=== PATIENT | male | born 1965 | race Caucasian/White ===

== ENCOUNTER 2017-08-18 11:01 | Emergency (ER) | payer OTHER ==
[~2017-08-18] VITALS: Ht 172.7 cm; Wt 72.1 kg
[~2017-08-18 11:01] MED LIST: AUGM875T PO; CENTTAB9 PO; CYMB30CA PO; CYMB60CA PO; DILA2TAB2 PO; EZET10 PO; FENO160T2 PO; FLAX100013 PO; METH750T2 PO; NEUR800T PO; OMEP20TA39 PO; PROT40TA PO; SYMB160A INH; TAMS0.4C67 PO; ULTR50TA PO
[2017-08-18 11:04] VITALS: BP 132/82; PULSE 80; RESP 18; TEMP 98.4; O2SAT 97
[2017-08-18] MEDS ORDERED: PROMETHAZINE INJ 25 MG/ML VIAL IM ONE (11:30)
[2017-08-18] MEDS ORDERED: DEXAMETHASONE SOD PHOS 4 MG/ML VIAL IM ONE (11:30)
[2017-08-18] MEDS ORDERED: MORPHINE SULFATE 8 MG/ML INJ IM ONE (11:30)
[2017-08-18] MEDS ORDERED: NORC5TAB PO (11:36)
[2017-08-18] MEDS ORDERED: MEDR4PAK PO (11:36)
[2017-08-18] MEDS ORDERED: CYCL10TA PO (11:36)
--- NOTE | 2017-08-18 11:37 | PD ---
HPI Chief Complaint: Pain: Acute or Chronic Time Seen by Provider: 11:17 Travel History International Travel<30 days: No Contact w/Intl Traveler<30days: No Traveled to known affect area: No History of Present Illness HPI The patient is a 52-year-old male who presents to the emergency department for low back pain. The patient states he was using a shovel in the yard 3 days ago, when he got the shovel stuck under some roots, when he pulled back he heard a "pop "in the lower back. The patient has a history of chronic herniated disc in the past and has undergone physical therapy for the herniated disc in the back. The pain was located in the mid lower back, radiates to the right luteal area and down the lateral aspect the right leg to the mid right thigh. Pain is worse with certain types of movement and weightbearing, slightly alleviated and certain positions such as hips and knees flexed. He denies any weakness or numbness of the lower legs, but does note pain and difficulty walking secondary to the pain. He denies any urinary or fecal incontinence. The patient has been taking ibuprofen with minimal relief of his symptoms. He did take a friend's hydrocodone and Flexeril earlier today with moderate relief of his symptoms. PFSH Past Medical History Anxiety: Yes Cancer: No Cardiovascular Problems: No High Cholesterol: Yes Diabetes: No Endocrine: No Genitourinary: No (ENLARGED PROSTATE) Hepatitis: No Hiatal Hernia: Yes Immune Disorder: Yes (? MS) Musculoskeletal: Yes (L HAND FUSION, BILAT FOOT FX) Neurologic: Yes (NEUROPATHY IN BOTH FEET; HEAD TRAUMA 2011; NEUROPATHY LEFT HAND) Psychiatric: Yes (BIPOLAR ) Reproductive: Yes (RIGHT TESTICLE ) Respiratory: Yes (COPD) Thyroid Disease: No Past Surgical History Abdominal Surgery: No (INGUINAL HERNIA REPAIR RIGHT; NETO COLECTOMY; INGUINAL HERNIA LEFT REPAIR ) AICD: No Body Medical Devices: ABDOMINAL MESH, MULTIPLE Cardiac Surgery: No Cholecystectomy: Yes Ear Surgery: No Endocrine Surgery: No Eye Surgery: No Genitourinary Surgery: No Joint Replacement: No Oral Surgery: Yes (TEETH EXTRACTIONS ) Pacemaker: No Thoracic Surgery: Yes (2004 CHEST TUBE) Social History Alcohol Use: No Tobacco Use: Yes Substance Use: Yes (MARIJUANA) Allergies-Medications (Allergen,Severity, Reaction): Coded Allergies: diatrizoate meglumine (Unverified Allergy, Severe, Wheezing, 08/18/17) gadobenic acid (Unverified Allergy, Severe, Wheezing, 08/18/17) gadodiamide (Unverified Allergy, Severe, Wheezing, 08/18/17) gadoteridol (Unverified Allergy, Severe, Wheezing, 08/18/17) iodixanol (Unverified Allergy, Severe, Wheezing, 08/18/17) iohexol (Unverified Allergy, Severe, Wheezing, 08/18/17) codeine (Unverified Allergy, Intermediate, Rash, 08/18/17) aspirin (Unverified Adverse Reaction, Mild, BRUISING, 08/18/17) Uncoded Allergies: STATIN DRUGS (Adverse Reaction, Intermediate, BRUISING, 10/21/14) Reported Meds & Prescriptions Reported Meds & Active Scripts Active Augmentin 875 mg Tab (Amoxicillin & Pot Clavulanate 875 mg Tab) 875 Mg Tab 875 Mg PO BID Dilaudid 2 Mg Tab (Hydromorphone Hcl) 2 Mg Tab 2 Mg PO Q4H PRN Robaxin (Methocarbamol) 750 Mg Tab 750 Mg PO TID PRN Ultram (Tramadol HCl) 50 Mg Tab 50 Mg PO TID PRN Reported Symbicort (Budesonide/Formoterol Fumarate) 160 Mcg/4.5 Mcg Aer 2 Puff INH ONCE * SHAKE WELL BEFORE USE * Hm Omeprazole (Omeprazole) 20 Mg Tab 20 Mg PO DAILY Flax Seed Oil (Flaxseed (Linseed)) 1,000 Mg Cap 1 Cap PO BID Centrum (Multivitamins) Tab 1 Tab PO DAILY Zetia (Ezetimibe) 10 Mg Tab 10 Mg PO HS Fenofibrate 160 Mg Tab 160 Mg PO HS Protonix (Pantoprazole Sodium) 40 Mg Tab 40 Mg PO DAILY Flomax (Tamsulosin HCl) 0.4 Mg Cap 0.4 Mg PO DAILY Cymbalta (Duloxetine HCl) 30 Mg Cap 30 Mg PO HS Cymbalta (Duloxetine Hcl) 60 Mg Cap 60 Mg PO Q AM Neurontin (Gabapentin) 800 Mg Tab 800 Mg PO TID Review of Systems Except as stated in HPI: all other systems reviewed are Neg General / Constitutional: No: Fever Cardiovascular: No: Chest Pain or Discomfort Respiratory: No: Shortness of Breath Gastrointestinal: No: Nausea, Vomiting, Abdominal Pain Genitourinary: No: Incontinence Musculoskeletal: Positive: Pain, No: Weakness Neurologic: No: Focal Abnormalities, Paresthesia, Incontinence, Sensory Disturbance Physical Exam Narrative GENERAL: Awake, alert, pleasant 52-year-old male who appears his stated age and is in no acute respiratory distress. SKIN: Focused skin assessment warm/dry. HEAD: Atraumatic. Normocephalic. EYES: No scleral icterus noted. ENT: No nasal bleeding or discharge. Breath smells of tobacco. NECK: Trachea midline. No JVD. MUSCULOSKELETAL: No obvious deformities. No clubbing. No cyanosis. No edema. Plantar flexion dorsiflexion are 5 out of 5. Flexion of the great toes bilateral 5 out of 5. Extension left knee is 4+5. Flexion extension of the right knee is 5/5 on the right. Flexion the hips bilateral, right is 5/5, left is 4+/5. Positive dorsalis pedal pulses. Back: Mild tenderness in mid lower lumbar region as well as over the right sacroiliac and right paravertebral muscle. NEUROLOGICAL: Awake and alert. No obvious cranial nerve deficits. Motor grossly within normal limits. Normal speech. Sensation is intact to soft touch lower extremity is bilaterally. PSYCHIATRIC: Appropriate mood and affect; insight and judgment normal. Data Data Last Documented VS Vital Signs Date Time Temp Pulse Resp B/P (MAP) Pulse Ox O2 Delivery O2 Flow Rate FiO2 08/18/17 11:04 98.4 80 18 132/82 (99) 97 Orders Orders Dexamethasone Inj (Decadron Inj) (08/18/17 11:30) Morphine Inj (Morphine Inj) (08/18/17 11:30) Promethazine Inj (Phenergan Inj) (08/18/17 11:30) [facility] Medical Decision Making Medical Screen Exam Complete: Yes Emergency Medical Condition: Yes Medical Record Reviewed: Yes Differential Diagnosis differential diagnosis includes back pain, herniated disc, spinal stenosis, lumbar spondylosis, sciatica, cauda equina. Narrative Course The patient's history and physical are consistent with back pain and radiculopathy, possibly herniated disc versus spinal stenosis. The patient was administered Decadron 8 mg IM and morphine 6 g IM with Phenergan 25 mg IM. The patient be discharged home on Medrol Dosepak, Flexeril, and hydrocodone. He is advised to follow-up with his primary physician for outpatient referral to physical therapy. If symptoms persist he may benefit from neurosurgical evaluation and outpatient MRI. Diagnosis Primary Impression: Back pain with right-sided radiculopathy Patient Instructions: General Instructions Additional Instructions: Medications as directed. Follow-up with your primary physician for outpatient physical therapy evaluation. His symptoms persist he may benefit from outpatient neurosurgical evaluation and/or MRI. Med/Other Pt SpecificInfo: Prescription(s) given Scripts Cyclobenzaprine (Flexeril) 10 Mg Tab 10 MG PO TID for Muscle Spasm for 10 Days, #30 TAB 0 Refills Prov: Kamran Mancini MD 08/18/17 Hydrocodone-Acetaminophen (Crozier) 5-325 mg Tab 1 TAB PO Q6H Y for PAIN, #12 TAB 0 Refills Prov: Kamran Mancini MD 08/18/17 Methylprednisolone Dosepak (Medrol Dosepak) 4 Mg Dspk 4 MG PO DIRECTED, #1 DSPK 0 Refills Per Pharmacist direction Prov: Kamran Mancini MD 08/18/17 Disposition: 01 DISCHARGE HOME Condition: Stable Kamran Mancini MD Aug 18, 2017 11:37
[2017-08-18 12:04] VITALS: RESP 16
== END 2017-08-18 12:05 | disposition home or self-care (01) ==
LOC: PHEFT 11:01
DX: M54.5 Low back pain (principal); M54.10 Radiculopathy, site unspecified; M79.604 Pain in right leg; E78.00 Pure hypercholesterolemia, unspecified; Z72.0 Tobacco use; Z86.59 Personal history of other mental and behavioral disorders; Z87.438 Personal history of other diseases of male genital organs; Z87.39 Personal history of other diseases of the musculoskeletal system and connective tissue; Z86.69 Personal history of other diseases of the nervous system and sense organs; Z87.09 Personal history of other diseases of the respiratory system
CPT/HCPCS: 96372; 99284; J1100; J2270; J2550